=== PATIENT | male | born 1960 | race Caucasian/White ===

== ENCOUNTER 2017-09-30 00:56 | Emergency (ER) | payer MEDICAID ==
[2017-09-30 02:36] VITALS: BP 140/95
== END 2017-09-30 02:36 | disposition home or self-care (01) ==
LOC: ED 00:56
DX: J45.901 Unspecified asthma with (acute) exacerbation (principal); F41.1 Generalized anxiety disorder; F17.210 Nicotine dependence, cigarettes, uncomplicated; I10 Essential (primary) hypertension
CPT/HCPCS: 99406; J7512; J7613; J7644